=== PATIENT | male | born 1965 | race American Indian/Alaskan Native ===

== ENCOUNTER 2017-12-21 12:57 | Observation (INO) | payer MEDICARE, MEDICAID ==
--- NOTE | 2017-12-21 13:38 | C.PDOC ---
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 Patient reports that last night he experienced sharp chest pain that radiated to his shoulder with shortness of breath which resolved after a few minutes. He notes that today he had another episode of chest pain that was more intense, shortness of breath, dizziness, and passing out for 30 seconds. Has been on Eliquis, last taken 1 month ago. Took aspirin at home. In the ED he still has chest pain, no trouble breathing. Patient given Nitroglycerin in the field by [employer]. Denies fever, nausea, vomiting, headache, numbness, tingling, and any other associated symptoms. Time Seen by Provider: 12/21/17 13:21 Chief Complaint (Nursing): Chest Pain History Per: Patient History/Exam Limitations: no limitations Onset/Duration Of Symptoms: Days Current Symptoms Are (Timing): Still Present Past Medical History Reviewed: Historical Data, Nursing Documentation, Vital Signs Vital Signs: Last Vital Signs Temp 97.8 F 12/21/17 13:14 Pulse 70 12/21/17 13:14 Resp 18 12/21/17 13:14 BP 134/70 12/21/17 13:14 Pulse Ox 98 12/21/17 13:14 - Medical History PMH: Deep Vein Thrombosis, HTN Family History: States: Unknown Family Hx - Social History Hx Alcohol Use: Yes Hx Substance Use: No - Immunization History Hx Tetanus Toxoid Vaccination: No Hx Influenza Vaccination: No Hx Pneumococcal Vaccination: No Review Of Systems Constitutional: Negative for: Fever Cardiovascular: Positive for: Chest Pain Respiratory: Positive for: Shortness of Breath Gastrointestinal: Negative for: Nausea, Vomiting Neurological: Positive for: Other (passed out for 30 seconds.). Negative for: Weakness, Numbness, Incoordination, Headache, Dizziness Physical Exam - Physical Exam Appears: Non-toxic Skin: Normal Color, Warm, Dry Head: Atraumatic, Normacephalic Eye(s): bilateral: Normal Inspection Oral Mucosa: Moist Neck: Normal ROM, Supple Chest: Symmetrical, No Deformity Cardiovascular: Rhythm Regular, No Murmur, Other (tachycardia.) Respiratory: Normal Breath Sounds, No Rales, No Rhonchi, No Wheezing Gastrointestinal/Abdominal: Normal Exam, Soft, No Tenderness Extremity: Normal ROM, No Pedal Edema, No Swelling Neurological/Psych: Oriented x3, Normal Speech, Normal Motor, Normal Sensation, Normal Reflexes ED Course And Treatment - Laboratory Results Result Diagrams: 12/21/17 13:46 12/21/17 15:53 Lab Interpretation: Abnormal (Hgb 10.6, K+ 3.3, d-dimer 678) ECG: Interpreted By Me ECG Rhythm: Sinus Rhythm ECG Interpretation: Normal O2 Sat by Pulse Oximetry: 98 (RA.) Pulse Ox Interpretation: Normal - Other Rad CXR X-Ray: Viewed By Me, Read By Radiologist Interpretation: FINDINGS: LUNGS: The lungs are well inflated and clear. PLEURA: No pneumothorax or pleural effusion. CARDIOVASCULAR: The heart is normal in size. No aortic atherosclerotic calcifications present. OSSEOUS STRUCTURES: Within normal limits for the patient's age. VISUALIZED UPPER ABDOMEN: Normal. OTHER FINDINGS: None. IMPRESSION: No active pulmonary disease. - CT Scan/US CT chest PE protocol Other Rad Studies (CT/US): Read By Radiologist, Radiology Report Reviewed CT/US Interpretation: Accession No. : [id number]. Patient Name / ID : TATUM LIU / [id number]. Exam Date : 12/21/2017 17:56:29 ( Approved ). Study Comment : Sex / Age : M / 52Y. Creator : Maggi Scanlon MD. Dictator : Maggi Scanlon MD. Clinical Research Spec : Director Of Rotc : Maggi Scanlon MD. Approver2 : Report Date : 12/21/2017 18:13:42. My Comment : . Date of service: 12/21/2017. PROCEDURE: CT Chest with contrast (Pulmonary Angiogram). HISTORY: chest pain. COMPARISON: None available. TECHNIQUE: Axial computed tomography images were obtained of the chest in the pulmonary arterial phase of enhancement. Coronal and sagittal reformatted images were created and reviewed. Intravenous contrast dose: 100 mL Visipaque 320. Radiation dose: Total exam DLP = 545.68 mGy-cm. This CT exam was performed using one or more of the following dose reduction techniques: Automated exposure control, adjustment of the mA and/or kV according to patient size, and/or use of iterative reconstruction technique. FINDINGS: PULMONARY ARTERIES: There are n o filling defects in the pulmonary arteries to suggest acute pulmonary embolism. AORTA: No acute findings. No thoracic aortic aneurysm. No aortic atherosclerotic calcification or mural plaque present. LUNGS: The lungs are well inflated and clear. There is subsegmental atelectasis in the anterior basal segment of the left lower lobe. No nodule, mass or pulmonary consolidation. PLEURAL SPACES: No effusion or pneumothorax. HEART: No cardiomegaly. No significant pericardial effusion. LYMPH NODES: There are subcentimeter mediastinal lymph nodes, likely reactive. BONES, CHEST WALL: Wit hin normal limits for the patient's age. No fracture or destructive lesion. OTHER FINDINGS: Unremarkable. IMPRESSION: No CTA evidence for acute pulmonary embolism. No focal consolidation, pleural effusion or pneumothorax. Reevaluation Time: 18:35 Reassessment Condition: Unchanged - Physician Consult Information Time Consulting Physician Contacted: 18:37 Physician Contacted: Harrison Freeman Outcome Of Conversation: Dr Freeman agrees to accept care of the patient and will hospitalize for chest pain observation. Medical Decision Making Medical Decision Making: Plan: -Angio CT Chest -EKG -Blood sent. -CXR 6:39pm Left a message for Dr. Freeman. Disposition - Disposition Disposition: HOSPITALIZED Disposition Time: 19:33 Condition: STABLE - POA Present On Arrival: None - Clinical Impression Clinical Impression: Chest pain, Precordial pain - Scribe Statement The provider has reviewed the documentation as recorded by the Scribe (Charley Anton) Provider Attestation: All medical record entries made by the Scribe were at my direction and personally dictated by me. I have reviewed the chart and agree that the record accurately reflects my personal performance of the history, physical exam, medical decision making, and the department course for this patient. I have also personally directed, reviewed, and agree with the discharge instructions and d isposition.
[2017-12-21 13:51] LABS: BASO # 0.1 K/uL (0.0-0.2); EOS # 0.5 K/uL (0.0-0.7); EOS % 9.4 % (0.0-4.0); HEMOGLOBIN 10.6 g/dL (12.0-18.0); LYMPH % 18.4 % (20.0-40.0); MEAN CELL VOLUME 87.6 fL (80.0-94.0); MEAN CORPUSCULAR HEMOGLOBIN 29.8 pg (27.0-31.0); MONO # 0.6 K/uL (0.0-0.8); MONO % 11.4 % (0.0-10.0); NEUT # 3.2 K/uL (1.8-7.0); NEUT % 59.8 % (50.0-75.0); NRBC % 0.1 % (0.0-2.0); RBC 3.54 Mil/uL (4.40-5.90); RED CELL DISTRIBUTION WIDTH 15.4 % (11.5-14.5); WHITE BLOOD COUNT 5.4 K/uL (4.8-10.8)
--- NOTE | 2017-12-21 14:03 | RAD ---
Date of service: 12/21/2017 PROCEDURE: CHEST RADIOGRAPH, 1 VIEW HISTORY: Chest pain COMPARISON: None available. FINDINGS: LUNGS: The lungs are well inflated and clear. PLEURA: No pneumothorax or pleural effusion. CARDIOVASCULAR: The heart is normal in size. No aortic atherosclerotic calcifications present. OSSEOUS STRUCTURES: Within normal limits for the patient's age. VISUALIZED UPPER ABDOMEN: Normal. OTHER FINDINGS: None. IMPRESSION: No active pulmonary disease.
[2017-12-21] MEDS ORDERED: DiphenhydrAMINE 50 mg/ml Inj IVP STA (15:29)
[2017-12-21] MEDS ORDERED: DiphenhydrAMINE 50 mg/ml Inj ONE (16:01)
[2017-12-21] MEDS ORDERED: Iodixanol 320 MG/ML 100 ML BOTTLE IV ONE (16:03)
[2017-12-21 16:20] LABS: ALBUMIN 3.4 g/dL (3.5-5.0); ALT/SGPT 49 U/L (21-72); AST/SGOT 49 U/L (17-59); BLOOD UREA NITROGEN 18 mg/dL (9-20); CALCIUM 8.6 mg/dl (8.6-10.4); GFR NON-AFRICAN AMERICAN > 60
--- NOTE | 2017-12-21 18:17 | CT ---
Date of service: 12/21/2017 PROCEDURE: CT Chest with contrast (Pulmonary Angiogram) HISTORY: chest pain COMPARISON: None available. TECHNIQUE: Axial computed tomography images were obtained of the chest in the pulmonary arterial phase of enhancement. Coronal and sagittal reformatted images were created and reviewed. Intravenous contrast dose: 100 mL Visipaque 320 Radiation dose: Total exam DLP = 545.68 mGy-cm. This CT exam was performed using one or more of the following dose reduction techniques: Automated exposure control, adjustment of the mA and/or kV according to patient size, and/or use of iterative reconstruction technique. FINDINGS: PULMONARY ARTERIES: There are no filling defects in the pulmonary arteries to suggest acute pulmonary embolism. AORTA: No acute findings. No thoracic aortic aneurysm. No aortic atherosclerotic calcification or mural plaque present. LUNGS: The lungs are well inflated and clear. There is subsegmental atelectasis in the anterior basal segment of the left lower lobe. No nodule, mass or pulmonary consolidation. PLEURAL SPACES: No effusion or pneumothorax. HEART: No cardiomegaly. No significant pericardial effusion. LYMPH NODES: There are subcentimeter mediastinal lymph nodes, likely reactive. BONES, CHEST WALL: Within normal limits for the patient's age. No fracture or destructive lesion OTHER FINDINGS: Unremarkable. IMPRESSION: No CTA evidence for acute pulmonary embolism. No focal consolidation, pleural effusion or pneumothorax.
[2017-12-21] MEDS ORDERED: Oxycodone/Acetaminophen 5/325 mg Tab PO PRN (19:27)
[2017-12-21] MEDS ORDERED: Oxycodone/Acetaminophen 5/325 mg Tab ONE (19:52)
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
[2017-12-21 20:50] VITALS: BP 150/79; PULSE 77; RESP 18; TEMP 98.6; O2SAT 98
[2017-12-21 22:18] LABS: CK-MB 0.85 ng/mL (0.0-3.38)
[2017-12-22] MEDS ORDERED: Enoxaparin 30 mg Syringe SC SCH (10:00)
--- NOTE | 2017-12-22 12:03 | CARD ---
APPROVED REPORT Date of service: 12/21/2017 EKG Measurement Heart [id number] <Conclusion> Normal sinus rhythm Normal ECG
--- NOTE | 2017-12-23 14:45 | CP.PCM.DIS ---
Provider - Provider Date of Admission: 12/21/17 19:34 Attending physician: Harrison Freeman MD Time Spent in preparation of Discharge (in minutes): 36 Hospital Course - Lab Results Lab Results: Most Recent Lab Values WBC 5.4 K/uL (4.8-10.8) 12/21/17 13:46 RBC 3.54 Mil/uL (4.40-5.90) L 12/21/17 13:46 Hgb 10.6 g/dL (12.0-18.0) L 12/21/17 13:46 Hct 31.0 % (35.0-51.0) L 12/21/17 13:46 MCV 87.6 fL (80.0-94.0) 12/21/17 13:46 MCH 29.8 pg (27.0-31.0) 12/21/17 13:46 MCHC 34.0 g/dL (33.0-37.0) 12/21/17 13:46 RDW 15.4 % (11.5-14.5) H 12/21/17 13:46 Plt Count 222 K/uL (130-400) 12/21/17 13:46 MPV 10.0 fL (7.2-11.7) 12/21/17 13:46 Neut % (Auto) 59.8 % (50.0-75.0) 12/21/17 13:46 Lymph % (Auto) 18.4 % (20.0-40.0) L 12/21/17 13:46 Trigg % (Auto) 11.4 % (0.0-10.0) H 12/21/17 13:46 Eos % (Auto) 9.4 % (0.0-4.0) H 12/21/17 13:46 Baso % (Auto) 1.0 % (0.0-2.0) 12/21/17 13:46 Neut # (Auto) 3.2 K/uL (1.8-7.0) 12/21/17 13:46 Lymph # (Auto) 1.0 K/uL (1.0-4.3) 12/21/17 13:46 Trigg # (Auto) 0.6 K/uL (0.0-0.8) 12/21/17 13:46 Eos # (Auto) 0.5 K/uL (0.0-0.7) 12/21/17 13:46 Baso # (Auto) 0.1 K/uL (0.0-0.2) 12/21/17 13:46 D-Dimer, Quantitative 678 ng/mlDDU (0-243) H 12/21/17 13:46 Sodium 139 mmol/L (132-148) 12/21/17 15:53 Potassium 3.3 mmol/L (3.6-5.2) L 12/21/17 15:53 Chloride 106 mmol/L (98-107) 12/21/17 15:53 Carbon Dioxide 24 mmol/L (22-30) 12/21/17 15:53 Anion Gap 13 (10-20) 12/21/17 15:53 BUN 18 mg/dL (9-20) 12/21/17 15:53 Creatinine 0.9 mg/dL (0.8-1.5) 12/21/17 15:53 Est GFR ( Amer) > 60 12/21/17 15:53 Est GFR (Non-Af Amer) > 60 12/21/17 15:53 Random Glucose 111 mg/dL (75-110) H 12/21/17 15:53 Calcium 8.6 mg/dl (8.6-10.4) 12/21/17 15:53 Total Bilirubin 0.4 mg/dL (0.2-1.3) 12/21/17 15:53 AST 49 U/L (17-59) 12/21/17 15:53 ALT 49 U/L (21-72) 12/21/17 15:53 Alkaline Phosphatase 101 U/L (38-126) 12/21/17 15:53 Total Creatine Kinase 99 U/L (55-170) 12/21/17 21:46 CK-MB (Mass) 0.85 ng/mL (0.0-3.38) 12/21/17 21:46 Troponin I < 0.0120 ng/mL (0.00-0.120) 12/21/17 21:46 Total Protein 6.7 g/dL (6.3-8.3) 12/21/17 15:53 Albumin 3.4 g/dL (3.5-5.0) L 12/21/17 15:53 Globulin 3.3 gm/dL (2.2-3.9) 12/21/17 15:53 Albumin/Globulin Ratio 1.0 (1.0-2.1) 12/21/17 15:53 - Hospital Course Hospital Course: HPI52 year old male with a history of hypertension and DVT after knee replacement presents to the ED for evaluation of chest pain x2 episodes and shortness of breath that began last night. Patient reports that last night he experienced sharp chest pain that radiated to his shoulder with shortness of breath which resolved after a few minutes. He notes that today he had another episode of chest pain that was more intense, shortness of breath, dizziness, and passing out for 30 seconds. Has been on Eliquis, last taken 1 month ago. Took aspirin at home. In the ED he still has chest pain, no trouble breathing. Patient given Nitroglycerin in the field by [employer]. Denies fever, nausea, vomiting, headache, numbness, tingling, and any other associated symptoms. CT angiogram of the chest showed no pulmonary embolism. EKG showed no acute ST- T changes and chest x-ray was normal. Few days ago patient was in the emergency room with similar complaints and is up before VQ scan was done. Patient also gives a history of allergic to contrast dye of having anaphylaxis but today patient had a CT angios with contrast without any incident On reviewing previous Emergency Room physician notes, patient also taking narcotics on a continuous monthly basis from different sources. FEW HOURS AFTER ADMISSION PATIENT SIGNED OUT against medical advice. pATIENT DID NOT EVEN SIGN THE PAPER AND LEFT THE HOSPITAL. wE WILL TRY TO CONTACT THE PATIENT ABOUT HIS MEDICATION AND HIS FURTHER CARE. Discharge Plan - Follow Up Plan Condition: STABLE Disposition: AGAINST MEDICAL ADVICE
== END 2017-12-21 21:40 | disposition left against medical advice (07) ==
LOC: C.ER 12:57 → C.9E 19:34 → C.6T 20:10
PROVIDERS: ADMIT Internal Medicine Cardiovascular Disease; ATTEND Internal Medicine Cardiovascular Disease
DX: I25.10 Atherosclerotic heart disease of native coronary artery without angina pectoris (principal); I10 Essential (primary) hypertension; M54.10 Radiculopathy, site unspecified; Z86.718 Personal history of other venous thrombosis and embolism; Z96.653 Presence of artificial knee joint, bilateral
CPT/HCPCS: 36415; 71045; 71275; 80053; 84484; 85025; 85378; 93005; 96374; 96375; 99285; G0378; J1200; J2270; J2930; Q9967